=== PATIENT | male | born 2000 | race Caucasian/White ===

== ENCOUNTER 2018-10-17 15:48 | Emergency (ER) | payer BC ==
[2018-10-17 16:28] VITALS: BP 130/68
[2018-10-17] MEDS ORDERED: Ibuprofen TAB* 600 MG PO ONE (16:41)
--- NOTE | 2018-10-17 16:45 | UC ---
Elbow Pain - HPI Summary HPI Summary: Patient is a 18 year old gentleman , who present today to the urgent care with right elbow pain and swelling . He reports that he fell down 5 days ago after slipping on ice and landed on his elbow with an open wound. The he has used bacitracin to treat it but slowly it has become more red and now has pus drainage with significant pain and restricted range of motion of the right elbow. He denies any other symptoms has fever here in the urgent care today. - History of Current Complaint Chief Complaint: [place] Stated Complaint: FEVER,RT ARM SKIN COMPLAINT Time Seen by Provider: 10/17/18 16:31 Hx Obtained From: Patient Pain Intensity: 7 - Allergies/Home Medications Allergies/Adverse Reactions: Allergies Allergy/AdvReac Type Severity Reaction Status Date / Time No Known Allergies Allergy Verified 10/17/18 16:28 Home Medications: Home Medications Sodium Chloride [Ra Saline Nasal [place]] 0.65 % NA 10/17/18 [History] PMH/Surg Hx/FS Hx/Imm Hx - Additional Past Medical History Additional PMH: Sinusitis Previously Healthy: Yes - Surgical History Surgical History: None - Social History Alcohol Use: Occasionally Substance Use Type: None Smoking Status (MU): Never Smoked Tobacco Review of Systems All Other Systems Reviewed And Are Negative: Yes Constitutional: Positive: Fever Skin: Positive: Rash - Right elbow and on/forearm- redness, Other - Open wound with pus draining at the right elbow Eyes: Positive: Negative ENT: Positive: Negative Respiratory: Positive: Negative Cardiovascular: Positive: Negative Gastrointestinal: Positive: Negative Genitourinary: Positive: Negative Motor: Positive: Negative Neurovascular: Positive: Negative Musculoskeletal: Positive: Arthralgia - Right elbow, Decreased ROM - Right elbow , Myalgia - Right elbow Neurological: Positive: Negative Psychological: Positive: Negative Is Patient Immunocompromised?: No Physical Exam - Summary Physical Exam Summary: Physical Exam: Const: Appears well. No signs of apparent distress present. Alert and oriented x 3. Musculo: Walks with a normal gait. Head/Face: Atraumatic, normocephalic on inspection. Eyes: EOMI and PERRLA in both eyes. Conjunctivae clear. No discharge noted ENT: Hearing normal, Respiratory: Respirations are unlabored. Lungs clear to auscultation bilaterally, no wheezing , rhonchi or rales noted . CVS: Regular rate and Rhythm, S1S2 normal , no murmurs identified. Extremities: Peripheral circulation is grossly normal. Pulses 2+ Abdomen : Soft non tender , nondistended , Bowel sounds present . No guarding , rebound tenderness or rigidity noted. Skin: No lesions or rash located on the upper extremities or on the lower extremities. Neuro: Cranial nerves II to XII intact, motor and sensory intact. DTR Intact bilaterally. Mood is normal. Affect is normal. Right Elbow: Inspection /Palpation: Swelling with significant redness and open wound with pus draining , area of erythema is also noted along the arm and the forearm. limited and painful range of motion of the right elbow Triage Information Reviewed: Yes Vital Signs: Initial Vital Signs Temp 103.4 F 10/17/18 16:25 Pulse 127 10/17/18 16:25 Resp 18 10/17/18 16:25 BP 130/68 10/17/18 16:25 Pulse Ox 99 10/17/18 16:25 Vital Signs Reviewed: Yes Elbow Pain Course/Dx - Course Course Of Treatment: During the visit today, we discussed the findings consistent with possibility of a septic joint along with cellulitis. He was given 1 dose of ibuprofen. Patient needs additional testing and definitive management, thus ER transfer advised and patient agrees. Report called to the ER provider (MAYELIN Lee)at [facility], advised provider of the history, physical examination, and duration of illness so far and the need for definitive management. His friend was driving to the ER in a private car. Vitals stable at the time of transfer. - Differential Dx/Diagnosis Provider Diagnosis: Septic arthritis of elbow, Cellulitis Discharge - Sign-Out/Discharge Documenting (check all that apply): Patient Departure All imaging exams completed and their final reports reviewed: No Studies - Discharge Plan Condition: Stable Disposition: HOME-RECOMMEND TO ED Patient Education Materials: Cellulitis (ED), Septic Arthritis (DC) Referrals: No Primary Care Phys,NOPCP [Primary Care Provider] - Additional Instructions: Patient needs additional testing, thus ER transfer advised and patient agrees. Report called to the ER provider at [facility] His friend will drive him to the ER in a private car Patients blood pressure slightly high in Urgent care today- likely due to fever and pain , plan follow up with PCP for recheck Return to Urgent care / ER if symptoms get worse. - Billing Disposition and Condition Condition: STABLE Disposition: Home-Recommend to ED
== END 2018-10-17 16:58 | disposition home health service (06) ==
LOC: UCCORT 15:48
DX: M00.9 Pyogenic arthritis, unspecified (principal); L03.113 Cellulitis of right upper limb
CPT/HCPCS: 99202; A9270-GY; G0463